=== PATIENT | female | born 1985 | race African-American/Black ===

== ENCOUNTER 2017-04-13 21:39 | Emergency (ER) | payer OTHER ==
[~2017-04-13] VITALS: Ht 170.2 cm; Wt 97.5 kg
[~2017-04-13 21:39] MED LIST: BENTYL 10 MG CA10 M1 PO; KEFLEX500 MG PO
[2017-04-13 21:45] VITALS: BP 149/98
[2017-04-13 21:57] LABS: URINE BILIRUBIN NEGATIVE (Negative); URINE BLOOD 2+ (Negative); URINE COLOR YELLOW; URINE GLUCOSE-RANDOM* NEGATIVE (Negative); URINE KETONES NEGATIVE (Negative); URINE NITRITE NEGATIVE (Negative); URINE PROTEIN (DIPSTICK) NEGATIVE (Negative); URINE UROBILINOGEN 0.2 E.U./dl (0.2-1.0)
[2017-04-13 22:13] LABS: CASTS None Seen /LPF (None Seen); SQUAMOUS 4-10 Moderate /LPF (0-3); URINE WBC 6-15 Few /HPF (0-5)
[2017-04-13 22:14] LABS: CRYSTALS None Seen /LPF (None Seen)
[2017-04-13 22:15] LABS: BACTERIA 1-9 Few /HPF (None Seen)
[2017-04-13] MEDS ORDERED: MACROBID 100 M100 M1 PO (22:29)
== END 2017-04-13 22:31 | disposition home or self-care (01) ==
LOC: ER 21:39
PROVIDERS: Nurse Practitioner
DX: N39.0 Urinary tract infection, site not specified (principal); Z88.8 Allergy status to other drugs, medicaments and biological substances

== ENCOUNTER 2017-09-17 20:45 | Emergency (ER) | payer OTHER ==
[~2017-09-17] VITALS: Ht 165.1 cm; Wt 101.2 kg
[~2017-09-17 20:45] MED LIST changes: +MACROBID 100 M100 M1 PO
[2017-09-17] MEDS ORDERED: PRENATA CHEWAB1 EACH PO (20:53)
[2017-09-17] MEDS ORDERED: MUCINEX DM ER1 EACH PO (22:20)
[2017-09-17] MEDS ORDERED: FLONASE 0.05%50 MCG NASAL (22:20)
[2017-09-17 22:43] VITALS: BP 126/70
== END 2017-09-17 22:44 | disposition home or self-care (01) ==
LOC: ER 20:45
DX: O99.512 Diseases of the respiratory system complicating pregnancy, second trimester (principal); J06.9 Acute upper respiratory infection, unspecified; Z3A.19 19 weeks gestation of pregnancy; Z88.8 Allergy status to other drugs, medicaments and biological substances

== ENCOUNTER 2018-12-19 19:09 | Emergency (ER) | payer OTHER ==
[~2018-12-19] VITALS: Ht 170.2 cm; Wt 96.6 kg
[~2018-12-19 19:09] MED LIST changes: +FLONASE 0.05%50 MCG NASAL; +MUCINEX DM ER1 EACH PO; +PRENATA CHEWAB1 EACH PO
[2018-12-19] MEDS ORDERED: AFRIN30 ML NASAL (20:44)
[2018-12-19] MEDS ORDERED: DOXYCYCLINE 10100 MG PO (20:44)
[2018-12-19] MEDS ORDERED: PREDNISONE 20 M20 MG PO (20:44)
[2018-12-19 21:22] VITALS: BP 161/96
== END 2018-12-19 22:12 | disposition home or self-care (01) ==
LOC: ER 19:09
DX: J32.0 Chronic maxillary sinusitis (principal); Z88.8 Allergy status to other drugs, medicaments and biological substances

== ENCOUNTER 2019-02-09 20:37 | Emergency (ER) | payer OTHER ==
[~2019-02-09] VITALS: Ht 170.2 cm; Wt 99.8 kg
[~2019-02-09 20:37] MED LIST changes: +AFRIN30 ML NASAL; +DOXYCYCLINE 10100 MG PO; +PREDNISONE 20 M20 MG PO
[2019-02-09 20:42] VITALS: BP 161/110
[2019-02-09] MEDS ORDERED: ZPAK PO (21:01)
== END 2019-02-09 21:18 | disposition home or self-care (01) ==
LOC: ER 20:37
DX: H73.012 Bullous myringitis, left ear (principal); J02.9 Acute pharyngitis, unspecified; Z88.8 Allergy status to other drugs, medicaments and biological substances

== ENCOUNTER 2019-05-09 07:44 | Emergency (ER) | payer OTHER ==
[~2019-05-09] VITALS: Ht 170.2 cm; Wt 99.8 kg
[~2019-05-09 07:44] MED LIST changes: +ZPAK PO
[2019-05-09 08:46] VITALS: BP 132/74
[2019-05-09] MEDS ORDERED: ZPAK PO (08:46)
[2019-05-09] MEDS ORDERED: TESSALON PERLE100 MG PO (08:46)
== END 2019-05-09 08:46 | disposition home or self-care (01) ==
LOC: ER 07:44
DX: J06.9 Acute upper respiratory infection, unspecified (principal); J21.9 Acute bronchiolitis, unspecified; Z88.8 Allergy status to other drugs, medicaments and biological substances

== ENCOUNTER 2019-08-07 07:47 | Emergency (ER) | payer OTHER ==
[~2019-08-07] VITALS: Ht 160 cm; Wt 102.1 kg
[~2019-08-07 07:47] MED LIST changes: +TESSALON PERLE100 MG PO
[2019-08-07] MEDS ORDERED: REGLAN 5 MG TAB5 MG PO (10:03)
[2019-08-07 10:18] VITALS: BP 155/85
== END 2019-08-07 10:19 | disposition home or self-care (01) ==
LOC: ER 07:47
DX: R51 Headache (principal); Z88.8 Allergy status to other drugs, medicaments and biological substances

== ENCOUNTER 2021-02-21 21:13 | Emergency (ER) | payer OTHER ==
[~2021-02-21] VITALS: Ht 170.2 cm; Wt 102.1 kg
[~2021-02-21 21:13] MED LIST changes: +REGLAN 5 MG TAB5 MG PO
[2021-02-21 21:18] VITALS: BP 162/94
[2021-02-21] MEDS ORDERED: PROCARDIA XL60 MG PO (21:21)
[2021-02-21] MEDS ORDERED: MAGIC MOUTHWASH SWISH&SPIT (21:57)
[2021-02-21] MEDS ORDERED: PREDNISONE 20 M20 MG PO (21:57)
== END 2021-02-21 22:01 | disposition home or self-care (01) ==
LOC: ER 21:13
DX: K14.8 Other diseases of tongue (principal); K13.79 Other lesions of oral mucosa

== ENCOUNTER 2021-08-07 16:09 | Emergency (ER) | payer OTHER, BC ==
[~2021-08-07] VITALS: Ht 170.2 cm; Wt 102.1 kg
[~2021-08-07 16:09] MED LIST changes: +MAGIC MOUTHWASH SWISH&SPIT; +PROCARDIA XL60 MG PO
[2021-08-07 16:26] LABS: URINE BILIRUBIN NEGATIVE (Negative); URINE BLOOD 1+ (Negative); URINE CLARITY SL HAZY; URINE COLOR YELLOW; URINE GLUCOSE-RANDOM* NEGATIVE (Negative); URINE KETONES NEGATIVE (Negative); URINE LEUKOCYTES-REFLEX 1+ (Negative); URINE NITRITE-REFLEX NEGATIVE (Negative); URINE PROTEIN (DIPSTICK) NEGATIVE (Negative); URINE UROBILINOGEN 0.2 E.U./dl (0.2-1.0)
[2021-08-07 16:31] LABS: SQUAMOUS 4-10 Moderate /LPF (0-3); URINE RBC 3-10 Few /HPF (NONE SEEN)
[2021-08-07 16:32] LABS: BACTERIA-REFLEX 1-9 Few /HPF (None Seen); CASTS None Seen /LPF (None Seen); CRYSTALS None Seen /LPF (None Seen); URINE WBC-REFLEX 6-15 Few /HPF (0-5)
[2021-08-07 17:08] LABS: ABSOLUTE NEUTROPHILS 8.6 thou/uL (1.4-8.2); EOSINOPHILS 0.9 % (0.0-3.0); HEMATOCRIT 36.9 % (37.0-47.0); LYMPHOCYTES 16.2 % (24.0-44.0); MCH 27.4 pg (26.0-34.0); MCHC 32.6 g/dL (28.0-37.0); MONOCYTES 7.6 % (1.0-8.0); PLATELET COUNT 371 thou/uL (150-400); POLYS 74.3 % (36.0-66.0); RBC 4.39 mil/uL (4.20-5.00); RDW 14.4 % (10.5-14.5); WBC 11.5 thou/uL (4.0-11.0)
[2021-08-07 17:11] LABS: CALCIUM 8.9 mg/dL (8.5-10.1); CREATININE 0.7 mg/dL (0.6-1.0); POTASSIUM 3.5 mmol/L (3.5-5.1)
[2021-08-07 17:17] LABS: TOTAL BILIRUBIN 0.2 mg/dL (0.2-1.0); TOTAL PROTEIN 8.3 g/dL (6.4-8.2)
[2021-08-07] MEDS ORDERED: MACROBID 100 M100 M1 PO ×2 (17:34→17:35)
[2021-08-07] MEDS ORDERED: ZOFRAN ODT4 MG PO (17:35)
[2021-08-07] MEDS ORDERED: NAPROSYN500 MG PO (17:35)
[2021-08-07 17:36] VITALS: BP 160/95
== END 2021-08-07 17:36 | disposition home or self-care (01) ==
LOC: ER 16:09
PROVIDERS: Emergency Medicine
DX: R10.84 Generalized abdominal pain (principal); I10 Essential (primary) hypertension; Z79.891 Long term (current) use of opiate analgesic; Z79.899 Other long term (current) drug therapy; Z88.8 Allergy status to other drugs, medicaments and biological substances